=== PATIENT | male | born 1965 | race Caucasian/White ===

== ENCOUNTER 2018-07-17 07:57 | Emergency (ER) | payer OTHER ==
--- NOTE | 2018-07-17 08:20 | C.PDOC ---
History Of Present Illness 53 year old male presents to the ED complaining of right knee pain status post misstepping yesterday. Reports he has pain when he walks or bears weight on the leg. States he went to work today and his boss told him to come to the ED. Also states he took unknown pain relief medications this morning. Denies any other injuries, weakness, numbness, or tingling. Time Seen by Provider: 07/17/18 08:03 Chief Complaint (Nursing): Lower Extremity Problem/Injury History Per: Patient History/Exam Limitations: no limitations Onset/Duration Of Symptoms: Days (1) Current Symptoms Are (Timing): Still Present - Knee Description Of Injury: Other (misstepped ) Currently Unable To: Bear Weight Past Medical History Reviewed: Historical Data, Nursing Documentation, Vital Signs Vital Signs: Last Vital Signs Temp 98.1 F 07/17/18 07:59 Pulse 87 07/17/18 07:59 Resp 18 07/17/18 07:59 BP 141/92 H 07/17/18 07:59 Pulse Ox 100 07/17/18 07:59 Primary Care Provider: FAMILY PROVIDER,NO - Medical History PMH: No Chronic Diseases Surgical History: No Surg Hx Family History: States: No Known Family Hx - Social History Hx Tobacco Use: No Hx Alcohol Use: Yes Hx Substance Use: No - Immunization History Hx Tetanus Toxoid Vaccination: No Hx Influenza Vaccination: No Hx Pneumococcal Vaccination: No Review Of Systems Musculoskeletal: Positive for: Other (right knee pain ) Neurological: Negative for: Weakness, Numbness Physical Exam - Physical Exam Appears: Non-toxic, No Acute Distress Skin: Warm, Dry, No Rash Head: Normacephalic Eye(s): bilateral: Normal Inspection Nose: Normal Oral Mucosa: Moist Neck: Supple Chest: Symmetrical Cardiovascular: Rhythm Regular Respiratory: Normal Breath Sounds, No Rales, No Rhonchi, No Wheezing Extremity: Normal ROM, Tenderness (lateral sides of right knee ), Capillary Refill (less than 2 sec to right knee ), No Deformity, Other (no crepitus, no clicking of right knee ) Pulses: Left Dorsalis Pedis: Normal, Right Dorsalis Pedis: Normal Neurological/Psych: Oriented x3, Normal Speech, Normal Motor, Normal Sensation Gait: Steady ED Course And Treatment O2 Sat by Pulse Oximetry: 100 (RA) Pulse Ox Interpretation: Normal Medical Decision Making Medical Decision Making: Plan - XR right knee Right knee xray shows no fracture, dislocation or effusion discussed results with patient wao was seated comfortably patient stable for discharge. recommend taking tylenol and/or ibuprofen for pain 1-2 times a day and to follow up with PMD Disposition Counseled Patient/Family Regarding: Diagnosis, Need For Followup, Rx Given - Disposition Referrals: [facility] [Outside] [facility] [place] [Outside] Disposition: HOME/ ROUTINE Disposition Time: 08:57 Condition: STABLE Additional Instructions: Tu radiografa era normal zully Tylenol extra fuerza si es necesario zully ibuprofeno 600 mg segn sea necesario cada 8 horas para el dolor, zully con comida Seguimiento en la clnica si sigue teniendo dolor. 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 - Scribe Statement The provider has reviewed the documentation as recorded by the Shazia Shepherd All medical record entries made by the Shazia were at my direction and personally dictated by me. I have reviewed the chart and agree that the record accurately reflects my personal performance of the history, physical exam, medical decision making, and the department course for this patient. I have also personally directed, reviewed, and agree with the discharge instructions and disposition.
[2018-07-17 09:13] VITALS: BP 138/86; PULSE 74; RESP 20; TEMP 97.7
--- NOTE | 2018-07-17 09:16 | RAD ---
Date of service: 07/17/2018 PROCEDURE: Right Knee Radiographs. HISTORY: pain r knee twisted it yesterday COMPARISON: None. TECHNIQUE: Three views obtained. FINDINGS: BONES: Normal. No fracture. JOINTS: Normal. No osteoarthritis. JOINT EFFUSION: Small effusion noted OTHER FINDINGS: None. IMPRESSION: Small joint effusion. No acute fracture.
[2018-07-17 12:14] VITALS: O2SAT 100
== END 2018-07-17 09:17 | disposition home or self-care (01) ==
LOC: C.ER 07:57
DX: S83.91XA Sprain of unspecified site of right knee, initial encounter (principal); X50.1XXA Overexertion from prolonged static or awkward postures, initial encounter; Y92.89 Other specified places as the place of occurrence of the external cause; Y99.8 Other external cause status